=== PATIENT | male | born 1975 | race Caucasian/White ===

== ENCOUNTER 2018-11-06 20:46 | Emergency (ER) | payer OTHER ==
[2018-11-06] MEDS ORDERED: Proparacaine 0.5% Ophth Soln 15 ML Bottle ONE (21:06)
[2018-11-06] MEDS ORDERED: Fluorescein 0.6 MG Ophth Strip ONE (21:06)
[2018-11-06] MEDS ORDERED: Proparacaine 0.5% Ophth Soln 15 ML Bottle EYERT ONE (21:16)
[2018-11-06] MEDS ORDERED: Fluorescein 0.6 MG Ophth Strip EYERT ONE (21:16)
--- NOTE | 2018-11-06 21:57 | EDM.PDOC ---
ED HPI GENERAL MEDICAL PROBLEM - General Chief Complaint: Eye Problems Stated Complaint: SOMETHING IN RIGHT EYE Time Seen by Provider: 11/06/18 21:14 Source of Information: Reports: Patient, RN Notes Reviewed History Limitations: Reports: No Limitations - History of Present Illness INITIAL COMMENTS - FREE TEXT/NARRATIVE: Patient is a 43 year old male who presents to the ED for the evaluation of a foreign body sensation to his right eye. He states that he was working on a pickup around 6pm when he felt a piece of something get into his eye. He does wear eyeglasses and was using eye protection. He states that this feels like it is in the outer lower edge of his right eye. He states that the is UTD with tetanus, as he is the [employer]. He did not try to flush the object out prior to ED arrival. 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 [No Known Home Meds] 11/06/18 [History] Past Medical History - Past Health History Medical/Surgical History: Denies Medical/Surgical History Social & Family History - Tobacco Use Smoking Status *Q: Never Smoker - Caffeine Use Caffeine Use: Reports: Coffee - Recreational Drug Use Recreational Drug Use: No ED ROS GENERAL - Review of Systems Review Of Systems: See Below Constitutional: Reports: No Symptoms HEENT: Reports: Eye Pain (foreign body in right eye), Glasses. Denies: Eye Discharge, Vision Change Respiratory: Reports: No Symptoms Cardiovascular: Reports: No Symptoms Endocrine: Reports: No Symptoms GI/Abdominal: Reports: No Symptoms : Reports: No Symptoms Musculoskeletal: Reports: No Symptoms Skin: Reports: No Symptoms Neurological: Reports: No Symptoms Psychiatric: Reports: No Symptoms Hematologic/Lymphatic: Reports: No Symptoms Immunologic: Reports: No Symptoms ED EXAM GENERAL W FULL EYE - Physical Exam Exam: See Below Text/Narrative:: exam limited to both eyes. Exam Limited By: No Limitations General Appearance: Alert, WD/WN, No Apparent Distress Eye Exam: Right Eye: Foreign Body (visualized with flourescein and blue light), Bilateral Eye: EOMI, Normal Inspection, PERRL Visual Acuity (R) 20/: 40 Visual Acuity (L) 20/: 40 With Correction: No Eyelids: Bilateral: Normal Appearance, Lid Everted for Exam Conjunctiva & Sclera: Right: Injected, Left: Normal Appearance Cornea Exam: Right: Foreign Body (right outer, lower corner of bottom eyelid), Examined with Flourescein Extraocular Movements: Bilateral: Intact Pupils: Normal Accommodation Pupillary Size: Bilateral: 3 mm Pupillary Reaction: Bilateral: Brisk Course - Vital Signs Last Recorded V/S: Last Vital Signs Temp 98.6 F 11/06/18 21:21 Pulse 65 11/06/18 21:21 Resp BP 132/87 11/06/18 21:21 Pulse Ox 100 11/06/18 21:21 - Orders/Labs/Meds Meds: Medications Discontinued Medications Generic Name Dose Route Start Last Admin Trade Name Leilani PRN Reason Stop Dose Admin Fluorescein Sodium Confirm 11/06/18 21:06 11/06/18 21:59 Ful-Kimberly Administered 11/06/18 21:07 Not Given Dose 0.6 mg .ROUTE .STK-MED ONE Fluorescein Sodium 0.6 mg 11/06/18 21:16 11/06/18 21:17 Ful-Kimberly EYERT 11/06/18 21:17 0.6 mg ONETIME ONE Administration Proparacaine HCl Confirm 11/06/18 21:06 11/06/18 21:59 Proparacaine 0.5% Ophth Soln Administered 11/06/18 21:07 Not Given Dose 15 ml .ROUTE .STK-MED ONE Proparacaine HCl 2 ml 11/06/18 21:16 11/06/18 21:18 Proparacaine 0.5% Ophth Soln EYERT 11/06/18 21:17 2 drop ONETIME ONE Administration - Re-Assessments/Exams Free Text/Narrative Re-Assessment/Exam: 11/06/18 21:50 Pt presents to the ED for the evaluation of a foreign body sensation to his left eye. Upon initial examination, I could not appreciate any foreign body. Florescein was used to right eye and examined with blue light on opthalamoscope and a small object was visualized to lower, outer corner of eyelid. The patient did tear up with the florescein and he states that he felt the object may have passed. Recommended use of bacitracin for tonight with use of artificial tears if needed. Pt understands and is amenable to this plan. Departure - Departure Time of Disposition: 21:54 Disposition: Home, Self-Care 01 Condition: Fair Clinical Impression: Foreign body in eyeball, right Qualifiers: Encounter type: initial encounter Qualified Code(s): S05.51XA - Penetrating wound with foreign body of right eyeball, initial encounter - Discharge Information *PRESCRIPTION DRUG MONITORING PROGRAM REVIEWED*: No *COPY OF PRESCRIPTION DRUG MONITORING REPORT IN PATIENT MIKI: No Instructions: Eye Foreign Body, [id number] Referrals: PCP,None [Primary Care Provider] - Forms: ED Department Discharge Additional Instructions: You have been evaluated in the ED for a foreign body in your eye. This seems to have flushed itself out. There is not an apparent abrasion. You may use the bacitracin to your eye. Use a 1cm ribbon to right eye margin. You may also use artificial tears for additional lubrication. Please return to the ED if your symptoms change or worsen.
== END 2018-11-06 22:03 | disposition home or self-care (01) ==
LOC: JD.ED 20:46
DX: S05.51XA Penetrating wound with foreign body of right eyeball, initial encounter (principal); X58.XXXA Exposure to other specified factors, initial encounter
CPT/HCPCS: 99283